=== PATIENT | female | born 1925 | race Caucasian/White ===

== ENCOUNTER 2016-09-15 19:17 | Inpatient (IN) | payer OTHER ==
[2016-09-15] MEDS ORDERED: ONDANSETRON INJ 2 MG/ML 2 ML VIAL IV STA (19:24)
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
[2016-09-15 19:54] LABS: HEMATOCRIT 30.6 % (37-47); MEAN CELL VOLUME 98.1 fL (80-100); MEAN CORPUSCULAR HGB CONC 34.6 g/dl (32-36); MEAN PLATELET VOLUME 10.2 fL (7.4-10.4); PLATELET COUNT 101 K/uL (130-400); RED BLOOD COUNT 3.12 M/uL (4.2-5.4); WHITE BLOOD COUNT 7.83 K/uL (4.8-10.8)
[2016-09-15] MEDS ORDERED: SODIUM CHLORIDE 0.9% 500ML 500 ML IV STA ×2 (19:55→22:24)
[2016-09-15 20:06] LABS: INR 1.1 (0.9-1.1); PROTHROMBIN TIME (PATIENT) 11.7 SECONDS (9.0-12.0)
[2016-09-15 20:12] LABS: BASO % 0.1 %; BASO ABS # 0.01 K/uL (0-0.2); COMPLETE YES; IG% 0.3 %; LYMPH % 11.9 %; LYMPH ABS # 0.93 K/uL (1.2-3.4); MONO % 11.6 %; NEUT % 76.1 %
[2016-09-15 20:15] LABS: ALT/SGPT 20 U/L (12-78); BLOOD UREA NITROGEN 30 mg/dl (7-18); BUN/CREATININE RATIO 20.2 (10-20); CALCIUM 8.5 mg/dl (8.5-10.1); CARBON DIOXIDE 24 mmol/L (21-32); CHLORIDE 113 mmol/L (98-107); GLUCOSE 128 mg/dl (70-99); POTASSIUM 4.4 mmol/L (3.5-5.1); SODIUM 146 mmol/L (136-145)
[2016-09-15 20:20] LABS: ALKALINE PHOSPHATASE 112 U/L (45-117); AST/SGOT 25 U/L (15-37); CKMB/CK RATIO 1.1 (0-3.0)
[2016-09-15] MEDS: MoRPHine SULFATE 4 MG/ML 1 ML CARP\\VIAL IV PRN ×2 (20:29→22:19)
[2016-09-15] MEDS ORDERED: ESCI10TA17 PO (20:35)
[2016-09-15] MEDS ORDERED: MOML PO (20:35)
[2016-09-15] MEDS ORDERED: ACET-1311 PO (20:35)
[2016-09-15] MEDS ORDERED: TRAZ50TA35 PO (20:35)
[2016-09-15] MEDS ORDERED: DOCU-94 PO (20:35)
[2016-09-15] MEDS ORDERED: METO50TA16 PO (20:35)
[2016-09-15] MEDS ORDERED: BUSP5TAB59 PO (20:35)
[2016-09-15] MEDS ORDERED: SENN-61 PO (20:35)
--- NOTE | 2016-09-15 21:12 | DIAGNOSTIC IMAGING REPORT ---
SINGLE VIEW PELVIS; 2 VIEWS LEFT HIP CLINICAL HISTORY: Fall with left pelvic pain. FINDINGS: 2 AP views of the pelvis with AP and crosstable lateral views of the left hip are obtained. No prior studies are available for comparison at the time of dictation. The skeletal structures are osteopenic. There are nondistracted left superior and inferior pubic ring fractures. No additional fracture is seen in the hips or bony pelvis. 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 Moderate arthritic change is present both hips. Mild sclerotic change is seen in the sacroiliac joints. Mild soft tissue edema overlies the left bony pelvis. Enthesophytes arise from the greater trochanters of the proximal femora. Lumbosacral spondylosis is partially imaged. Numerous phlebolith are identified in the pelvis. There is advanced atherosclerotic calcification of the femoral arteries. There is stool in the rectosigmoid colon. IMPRESSION: 1. There are acute nondistracted left superior and inferior pubic ring fractures with overlying soft tissue edema. 2. No additional fracture is seen in the hips or bony pelvis. 3. Osteopenia, degenerative change, and left-sided protrusio acetabuli as above. Electronically signed by: Waylon Juan M.D. 09/15/2016 9:11 PM Dictated Date/Time: 09/15/2016 9:09 PM
--- NOTE | 2016-09-15 21:14 | DIAGNOSTIC IMAGING REPORT ---
SINGLE VIEW CHEST CLINICAL HISTORY: Trauma. Fall. FINDINGS: An AP supine chest radiograph is obtained. No prior studies are available for comparison at the time of dictation. The examination is significantly degraded by patient rotation. The heart is enlarged and there is atherosclerotic calcification of the thoracic aorta. The pulmonary vasculature is noncongested. Nonspecific interstitial thickening is likely chronic. No airspace consolidation, large pleural effusion, or pneumothorax is seen. Atelectasis is noted at the left lung base. The skeletal structures are osteopenic. The bony thorax is grossly intact. Degenerative change is noted throughout the thoracic spine. IMPRESSION: Cardiomegaly with no acute cardiopulmonary abnormality. Electronically signed by: Waylon Juan M.D. 09/15/2016 9:13 PM Dictated Date/Time: 09/15/2016 9:11 PM
--- NOTE | 2016-09-15 21:16 | DIAGNOSTIC IMAGING REPORT ---
LEFT FOREARM 2 VIEWS CLINICAL HISTORY: Fall with left arm pain. FINDINGS: AP and crosstable lateral views of the left forearm are obtained. No prior studies are available for comparison at the time of dictation. The skeletal structures are osteopenic. There is an impacted and comminuted distal radial metadiaphyseal fracture with intra-articular extension and overlying soft tissue edema. There are minimally distracted fragments. The proximal radius and the ulna appear intact. Arthritic change is noted in the wrist. There is chondrocalcinosis of the triangular fibrocartilage. IMPRESSION: There is an impacted and comminuted distal radial metadiaphyseal fracture with overlying soft tissue edema and intra-articular extension as above. Electronically signed by: Waylon Juan M.D. 09/15/2016 9:15 PM Dictated Date/Time: 09/15/2016 9:13 PM
--- NOTE | 2016-09-15 21:18 | DIAGNOSTIC IMAGING REPORT ---
LEFT HUMERUS 2 VIEWS CLINICAL HISTORY: Fall with left arm injury. FINDINGS: AP and lateral views of the left humerus are obtained. No prior studies are available for comparison at the time of dictation. The skeletal structures are osteopenic. No acute humeral fracture is identified. There is chronic posttraumatic deformity of the left humeral neck. The shoulder and elbow joints are grossly maintained. The overlying soft tissues are within normal limits. Partially imaged left upper lobe lung parenchyma appears clear. IMPRESSION: 1. No acute left humeral fracture is identified. 2. Osteopenia and chronic posttraumatic deformity of the left humeral neck as above. Electronically signed by: Waylon Juan M.D. 09/15/2016 9:17 PM Dictated Date/Time: 09/15/2016 9:16 PM
[2016-09-15 22:07] LABS: MANUAL MICROSCOPIC REQUIRED? YES; URINE APPEARANCE TURBID (CLEAR); URINE COLOR YELLOW; URINE NITRITE NEG (NEG); URINE PH 5.5 (4.5-7.5); URINE SPECIFIC GRAVITY >= 1.030 (1.000-1.030); UROBILINOGEN NEG (NEG)
[2016-09-15 22:09] LABS: REVIEW REQ? NO
[2016-09-15 22:10] LABS: URINE BILIRUBIN NEG (NEG)
[2016-09-15 22:13] LABS: URINE BACTERIA 4+ (NEG); URINE WBC >30 /hpf (0-5)
[2016-09-15] MEDS ORDERED: CEFTRIAXONE SOD INJ 1 GM ADDVIAL IV STA (22:24)
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
[2016-09-16] MEDS ORDERED: ALUMINUM/MAGNESIUM/SIMETH (MAALOX MAX) 30 ML UDC PO PRN (02:15)
[2016-09-16] MEDS ORDERED: ONDANSETRON INJ 2 MG/ML 2 ML VIAL IV PRN (02:15)
[2016-09-16] MEDS ORDERED: MAGNESIUM HYDROXIDE SUSP 30 ML UDC PO PRN (02:15)
[2016-09-16] MEDS ORDERED: POLYETHYLENE (MIRALAX) 17 GM PACK PO PRN (02:15)
[2016-09-16] MEDS ORDERED: ACETAMINOPHEN 325 MG TAB PO PRN (02:15)
[2016-09-16 02:58] VITALS: BP 161/70; PULSE 81; TEMP 36.7; O2SAT 99
[2016-09-16] MEDS: D5W AND 1/2NSS 1,000 ML IV SCH ×2 (03:33→14:06)
[2016-09-16] MEDS: MoRPHine SULFATE 4 MG/ML 1 ML CARP\\VIAL IV PRN ×3 (03:45→16:03)
[2016-09-16] MEDS ORDERED: PNEUMOCOCCAL POLYSACCHARIDES 25 MCG/0.5 ML VIAL/SYR IM. ONE (04:45)
[2016-09-16] MEDS ORDERED: PNEUMOCOCCAL ADMINISTRATION CHARGE ONE (04:45)
[2016-09-16] MEDS ORDERED: INFLUENZA VIRUS QUAD VACCINE 0.5 ML SYR IM. ONE (04:45)
[2016-09-16] MEDS ORDERED: INFLUENZA ADMINISTRATION CHARGE ONE (04:45)
[2016-09-16 07:30] VITALS: BP 132/74; PULSE 90; TEMP 36.5; O2SAT 94
[2016-09-16] MEDS: METOPROLOL TARTRATE 50 MG TAB PO SCH ×2 (09:00→20:29)
[2016-09-16] MEDS: ESCITALOPRAM OXALATE 10 MG TAB PO SCH (09:00)
[2016-09-16] MEDS: DOCUSATE SODIUM 100 MG CAP PO SCH ×2 (09:00→20:28)
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
[2016-09-16 15:00] VITALS: BP 138/74; PULSE 102; TEMP 37.4; O2SAT 100
[2016-09-16] MEDS ORDERED: HYDROmorphone INJ 1 MG/ML SYR IV PRN (18:00)
[2016-09-16] MEDS ORDERED: NURSING VERBAL MED ORDER ONE (18:00)
[2016-09-16 18:39] VITALS: BP 111/58; PULSE 112; O2SAT 100
[2016-09-16] MEDS: TRAZODONE HCL 50 MG TAB PO SCH (20:29)
[2016-09-16] MEDS: SENNA 8.6 MG TAB PO SCH (20:29)
[2016-09-16] MEDS ORDERED: CEFTRIAXONE SOD INJ 1 GM in DEXTROSE 5% ADD-VANTAGE 50ML 50 ML IV SCH (23:00)
[2016-09-17 07:50] VITALS: BP 134/72; PULSE 116; TEMP 37.5; O2SAT 94
[2016-09-17] MEDS: ESCITALOPRAM OXALATE 10 MG TAB PO SCH (08:32)
[2016-09-17] MEDS: DOCUSATE SODIUM 100 MG CAP PO SCH ×2 (08:32→20:31)
[2016-09-17] MEDS: METOPROLOL TARTRATE 50 MG TAB PO SCH ×2 (08:32→20:31)
[2016-09-17 08:52] VITALS: O2SAT 94
[2016-09-17 09:33] VITALS: O2SAT 94
[2016-09-17] MEDS: MoRPHine SULFATE 4 MG/ML 1 ML CARP\\VIAL IV PRN (12:36)
[2016-09-17 13:28] VITALS: BP 134/72; PULSE 116; TEMP 37.5; O2SAT 94
[2016-09-17] MEDS ORDERED: FENTANYL 12 MCG/HR TDSY TD SCH (16:00)
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
[2016-09-17] MEDS: MoRPHine SULFATE 5 MG/0.25 ML UDP PO PRN (16:26)
[2016-09-17] MEDS: TRAZODONE HCL 50 MG TAB PO SCH (20:31)
[2016-09-17] MEDS: SENNA 8.6 MG TAB PO SCH (20:32)
[2016-09-18] MEDS: MoRPHine SULFATE 5 MG/0.25 ML UDP PO PRN ×2 (00:32→11:44)
[2016-09-18] MEDS: METOPROLOL TARTRATE 50 MG TAB PO SCH (07:48)
[2016-09-18] MEDS: CHECK FENTANYL PATCH PLACEMENT SCH ×2 (07:48)
[2016-09-18] MEDS: DOCUSATE SODIUM 100 MG CAP PO SCH (07:48)
[2016-09-18] MEDS: ESCITALOPRAM OXALATE 10 MG TAB PO SCH (07:48)
[2016-09-18] MEDS ORDERED: DRGTP12 TD (08:16)
[2016-09-18] MEDS ORDERED: RXNS5 PO (08:16)
--- NOTE | 2016-09-18 08:38 | Discharge Instructions ---
Discharge Instructions Date of Service Sep 18, 2016. Admission Reason for Admission: Pelvic Fracture, Radial Fracture Discharge Discharge Diagnosis / Problem: Left pelvic and radial fractures Discharge Goals Goal(s): Decrease discomfort, Diagnostic testing, Therapeutic intervention Activity Recommendations Activity Level: Bedrest, Assistance Required Therapies: Physical Therapy, Occupational Therapy Shower/Bathe: no limitations . Additional Information Patient informed of condition: Yes (severe dementia. Daughters/POA informed, agree with plan) Advance Directives: Yes DNR: Yes Level of Care: Skilled Communicable Disease: No Prognosis: Deteriorating (Immobile, poor prognosis) Marroquin Catheter: Yes Instructions / Follow-Up Instructions / Follow-Up Activity Level/Recommendations: *Patient is unable to move due to multiple acute fractures in pubic ring and pain. Patient also appears to have pain with any movement of left hand/wrist due to distal left radial fracture. Due to hospice status/comfort measures, recommend bedrest and pain management. *Patient is on comfort measures. Recommend very limited lab draws at this point. Main goal is pain control for comfort. Medications: *Patient started on fentanyl patch 12 mcg transdermally q72h for baseline pain control. Check fentanyl patch placement every shift. Remove patch after 72 hours. Patient also started on Roxanol 5 mg PO q6h prn pain for breakthrough pain. Patient has been tolerating this well in the hospital. Doses may be titrated as needed. *Patient may resume home medications as before. Decision to stop these medications due to hospice care up to family and hospice staff at [facility]. Current Hospital Diet Patient's current hospital diet: Regular Diet Discharge Diet Recommended Diet: Regular Diet Pending Studies Studies pending at discharge: no Physician Orders On Transfer Special Precautions: Fall precautions. Aspiration precautions due to mental status. Dressing Changes: Left wrist wrapped in SOHAIL bandages for stability. No open wounds. Change as needed. IV Therapy: Avoid IV medications when possible Vital Signs: Routine Additional Orders: Check fentanyl patch every shift. Remove after 3 days. Medical Emergencies . Who to Call and When: Medical Emergencies: If at any time you feel your situation is an emergency, please call 911 immediately. . Non-Emergent Contact Non-Emergency issues call your: Primary Care Provider Call Non-Emergent contact if: you have a fever, your pain is not controlled, your pain is worsening, you have any medication questions . Past History Medical & Surgical History: (1) Fall (2) Pelvis fracture (3) Distal radius fracture, left . "Provider Documentation" section prepared by Carmen Rios. Core Measure Problem Core Measures: None
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
[2016-09-18] MEDS ORDERED: NURSING VERBAL MED ORDER ONE (13:45)
[2016-09-18] MEDS ORDERED: MoRPHine SULFATE 5 MG/0.25 ML UDP PO ONE (14:30)
[2016-09-18] MEDS ORDERED: LORAZEPAM 1 MG TAB PO ONE (14:30)
[2016-09-20] MEDS ORDERED: FENTANYL PATCH REMOVE & WASTE SCH (16:00)
== END 2016-09-18 15:55 | disposition hospice, inpatient (51) | DRG 536 ==
LOC: ENRESERVDT → ENRESERVTM → C.EDB 19:22 → C.MSN 09-16 02:06
PROVIDERS: ADMIT Internal Medicine; ATTEND Internal Medicine
DX: S32.592A Other specified fracture of left pubis, initial encounter for closed fracture (principal); N17.9 Acute kidney failure, unspecified; Z51.5 Encounter for palliative care; S52.502A Unspecified fracture of the lower end of left radius, initial encounter for closed fracture; N39.0 Urinary tract infection, site not specified; M25.552 Pain in left hip; I10 Essential (primary) hypertension; F03.90 Unspecified dementia, unspecified severity, without behavioral disturbance, psychotic disturbance, mood disturbance, and anxiety; E86.0 Dehydration; Z66 Do not resuscitate; Y92.129 Unspecified place in nursing home as the place of occurrence of the external cause; W03.XXXA Other fall on same level due to collision with another person, initial encounter